=== PATIENT | female | born 1985 | race Caucasian/White ===

== ENCOUNTER 2023-05-31 16:01 | Outpatient (CLI) | payer BC, OTHER ==
[~2023-05-31] VITALS: Ht 165.1 cm; Wt 103.6 kg
[~2023-05-31 16:01] MED LIST: LEXAPRO20 MG; LOVENOX 3030 MG/0.3 SQ; LOVENOX 4040 MG/0.4 SQ; MOTRIN 600600 MG/TAB PO; PERCOCET 325 MG1 TA2 PO; PRENATAL TABLET PO; PRENATAL1 TA1 PO; PROCARDIA XL 6060 MG PO; PROZAC 20MG20 MG PO; TUMS EXTRA STR750 MG PO; TUMS500 MG
--- NOTE | 2023-05-31 16:10 | NUR ---
PATIENT AMBULATORY TO UNIT WITH SIGNIFICANT OTHER, PATIENT ORIENTED TO LABOR ROOM 4 AND ASSISTED INTO A GOWN. PATIENT REPORTS ELEVATED BLOOD PRESSURES AT HOME, HEADACHE, FACIAL TINGLING, LOWER EXTREMITY EDEMA, AND PELVIC PRESSURE, PATIENT REPORTS AT 1344 BLOOD PRESSURE 144/103 PATIENT TOOK LABETALOL AND RECHECKED HER BLOOD PRESSURE WHICH WAS 138/93. EFM AND TOCO PLACED AND TRACING, ASSESSMENTS COMPLETE.
[2023-05-31] MEDS ORDERED: INSHUMULINR SQ (16:33)
[2023-05-31] MEDS ORDERED: INSHUMULINN SQ (16:34)
--- NOTE | 2023-05-31 16:40 | NUR ---
AT NURSES STATION, REPORT GIVEN, VERBAL ORDER FOR DISCHARGE BY .
[2023-05-31] MEDS ORDERED: LR 1,000 ML IV PRN (16:45)
[2023-05-31 16:58] VITALS: BP 133/62; PULSE 74; TEMP 98.1
== END 2023-05-31 17:08 | disposition home or self-care (01) ==
LOC: LDRO 16:01
DX: O16.3 Unspecified maternal hypertension, third trimester (principal); Z3A.32 32 weeks gestation of pregnancy

== ENCOUNTER 2023-07-12 23:21 | Inpatient (IN) | payer BC, OTHER ==
[~2023-07-12] VITALS: Ht 162.6 cm; Wt 105.0 kg
[~2023-07-12 23:21] MED LIST changes: +INSHUMULINN SQ; +INSHUMULINR SQ
--- NOTE | 2023-07-12 23:30 | NUR ---
G4L2 at 38 weeks and 2 days arrives to unit with complaint of spontaneous rupture of membranes. Pt states feeling a large gush of fluid around 2215. States the fluid has been a brown/green color. Reports mild contractions started after leaking and are about every 5 minutes. Reports good movement and denies vaginal bleeding. Pt denies headaches, blurry vision, or RUQ pain. Clean gown on. US and toco explained and applied. Admission assessment started. Vitals obtained. Large amount of brown fluid noted under patient, on chux pad. SVE /-3.
[2023-07-13] VITALS (30 sets, daily range): BP systolic 112–179; BP diastolic 58–104; PULSE 64–98; TEMP 97.6–98.6
[2023-07-13] MEDS ORDERED: LR 1,000 ML IV SCH (00:15)
[2023-07-13] MEDS ORDERED: PRILOSEC 20MG20 MG PO (00:22)
[2023-07-13 00:26] LABS: BASO # 0.1 K/mm3 (0.0-0.2); BASO % 0.5 % (0.0-2.0); EOS # 0.1 K/mm3 (0.0-0.7); EOS % 0.8 % (0.0-4.0); GRAN # 10.5 K/mm3 (1.4-6.5); GRAN % 77.8 % (42.2-75.2); HEMOGLOBIN 11.8 g/dl (12.5-16.0); LYMPH # 2.1 K/mm3 (1.2-3.4); LYMPH % 15.5 % (20.0-51.0); MEAN CELL VOLUME 79 fl (80.0-100.0); MEAN CORPUSCULAR HEMOGLOBIN 26 pg (27-31); MEAN CORPUSCULAR HGB CONC 33 g/dl (33.0-37.0); MEAN PLATELET VOLUME 12.3 fl (7.4-10.4); MONO # 0.7 K/mm3 (0.1-0.6); MONO % 4.8 % (1.7-9.3); PLATELET COUNT 223 K/mm3 (130-400); RED BLOOD COUNT 4.59 M/mm3 (4.10-5.30); REDCELL DISTRIBUTION WIDTH-CV 16.2 % (11.5-14.5)
[2023-07-13 00:40] LABS: HEMATOCRIT 36.2 % (37.0-47.0)
[2023-07-13] MEDS ORDERED: Oxytocin 10 UNITS/ML VIAL ONE (01:23)
[2023-07-13] MEDS ORDERED: NS 20 ML IV ONE (01:23)
[2023-07-13] MEDS ORDERED: Ondansetron 4 MG/2 ML VIAL ONE (01:23)
[2023-07-13] MEDS ORDERED: Phenylephrine 10 MG/ML VIAL ONE (01:24)
[2023-07-13] MEDS ORDERED: Ketorolac 60 MG/2 ML VIAL IM ONE (01:24)
[2023-07-13] MEDS ORDERED: Meperidine 50 MG/ML 1 ML VIAL ONE (01:26)
[2023-07-13] MEDS ORDERED: fentaNYL 50 MCG/ML 2 ML VIAL ONE ×2 (01:37→01:39)
[2023-07-13] MEDS ORDERED: LR 1,000 ML IV ONE (01:43)
[2023-07-13] MEDS ORDERED: Loratadine 10 MG TAB PO PRN (02:15)
[2023-07-13] MEDS ORDERED: Magnes Hydrox (MOM) 80 MG/ML 30 ML CUP PO PRN (02:15)
[2023-07-13] MEDS ORDERED: NIFEdipine XL 60 MG TAB PO SCH (02:55)
[2023-07-13] MEDS ORDERED: Ondansetron 4 MG/2 ML VIAL IV PRN (04:00)
[2023-07-13] MEDS ORDERED: LR 1,000 ML IV PRN (04:00)
[2023-07-13] MEDS ORDERED: Measles/Mumps/Rubella Virus Vaccine Live w Diluent 0.5 ML VIAL SQ SCH (04:00)
[2023-07-13] MEDS ORDERED: Naloxone 0.4 MG/ML VIAL IV PRN (04:00)
[2023-07-13] MEDS ORDERED: oxyCODONE/Acetaminophen 5-325 MG TAB PO PRN (04:00)
[2023-07-13] MEDS ORDERED: INSULIN AS100 UNIT/3 (04:29)
[2023-07-13] MEDS ORDERED: NORMODYNE200 MG PO (04:43)
[2023-07-13] MEDS ORDERED: hydrALAZINE 20 MG/ML 1 ML VIAL IV PRN ×2 (06:15)
[2023-07-13] MEDS ORDERED: Sennosides/Docusate 8.6-50 MG TAB PO SCH (08:00)
[2023-07-13] MEDS ORDERED: Ibuprofen 800 MG TAB PO SCH (08:10)
[2023-07-13] MEDS ORDERED: FLUoxetine 20 MG CAP PO SCH (09:00)
--- NOTE | 2023-07-13 10:27 | NUR ---
Initial visit; Parents thanked Neurosurgery Physician for offering congratulations and God's blessings for the of their son. Neurosurgery Physician thanked family for choosing [facility].
[2023-07-13] MEDS ORDERED: traZODone 50 MG TAB PO PRN (21:00)
[2023-07-14] VITALS (7 sets, daily range): BP systolic 114–143; BP diastolic 53–91; PULSE 72–81; TEMP 97.7–98.2
--- NOTE | 2023-07-14 09:52 | NUR ---
PT CALLS OUT SECURITIES TELLER LIGHT. PT REPORTS FEELING WHAT SHE WOULD DESCRIBE DIZZY/LIGHTHEADED. BLOOD PRESSURE TAKEN AT THIS TIME 143/73. THIS RN NOTIFIES PT IT MAY BE THE OXYCODONE ON AN EMPTY STOMACH. PT CONSUMMING BREAKFAST AT THIS TIME. ADVISED TO TRY TO EAT MORE AND IF FEELING DOES NOT GO AWAY TO NOTIFY THIS RN.
--- NOTE | 2023-07-14 12:40 | NUR ---
THIS RN GIVES REPORT TO Merle PISANO RN
--- NOTE | 2023-07-14 14:50 | NUR ---
THIS RN TAKES CARE BACK OVER FROM ERIBERTO PISANO RN
[2023-07-15] MEDS ORDERED: IBU800 M1 PO (07:49)
[2023-07-15 09:01] VITALS: BP 137/70; PULSE 72; TEMP 97.8
--- NOTE | 2023-07-15 10:49 | NUR ---
Follow-up visit; Patient doing well and thanked for looking in on her again this morning.
== END 2023-07-15 15:05 | disposition home or self-care (01) | DRG 787 ==
LOC: LDRO 23:21 → LDR 07-13 00:13 → OB 07-13 03:00
PROVIDERS: Obstetrics & Gynecology; ADMIT Obstetrics & Gynecology
PROC: 10D00Z1 Extraction of Products of Conception, Low, Open Approach (ICD-10-PCS; principal; 2023-07-13)
DX: O34.211 Maternal care for low transverse scar from previous cesarean delivery (principal); D68.51 Activated protein C resistance; D68.59 Other primary thrombophilia; O10.92 Unspecified pre-existing hypertension complicating childbirth; O99.12 Other diseases of the blood and blood-forming organs and certain disorders involving the immune mechanism complicating childbirth; F32.A Depression, unspecified; O99.344 Other mental disorders complicating childbirth; O99.214 Obesity complicating childbirth; F41.9 Anxiety disorder, unspecified; O24.425 Gestational diabetes mellitus in childbirth, controlled by oral hypoglycemic drugs; O77.0 Labor and delivery complicated by meconium in amniotic fluid; Z86.718 Personal history of other venous thrombosis and embolism; Z3A.38 38 weeks gestation of pregnancy; Z37.0 Single live birth; Z23 Encounter for immunization; Z88.5 Allergy status to narcotic agent
CPT/HCPCS: J0360; J0690; J1100; J1650; J1885; J1920; J2175; J2371; J2405; J2590; J3010; J7120